=== PATIENT | male | born 1935 | race Caucasian/White ===

== ENCOUNTER 2016-07-17 12:32 | Observation (INO) | payer OTHER ==
[~2016-07-17] VITALS: Ht 157.5 cm; Wt 72.5 kg
[~2016-07-17 12:32] MED LIST: ASPIRIN81 M2 PO; CINNAMON500 MG PO; FOSINOPRIL SODI40 MG PO; KEFLEX500 MG PO; LORAZEPAM1 MG PO; MEN'S MULTI-VI1 EACH PO; METFORMIN HCL500 M1 PO; METOPROLOL SUCC50 MG PO; OMEGA 3-6-9 CO1 EACH PO; PAROXETINE HCL40 MG PO; SIMVASTATIN40 MG PO; TAMSULOSIN HCL0.4 MG PO
[2016-07-17] MEDS ORDERED: METFORMIN HCL750 MG PO (12:54)
[2016-07-17] MEDS ORDERED: COQ-10100 MG PO (12:55)
[2016-07-17] MEDS ORDERED: RANITIDINE HCL300 M1 PO (12:55)
[2016-07-17] MEDS ORDERED: BREO ELLIPTA I1 EACH IH (12:56)
[2016-07-17] MEDS ORDERED: FOSINOPRIL SODI20 MG PO (12:57)
[2016-07-17] MEDS ORDERED: PAROXETINE HCL40 MG PO (12:57)
[2016-07-17] MEDS ORDERED: GABAPENTIN300 MG PO (12:58)
[2016-07-17] MEDS ORDERED: CLONAZEPAM0.5 MG PO (12:59)
[2016-07-17 14:33] LABS: EOSINOPHIL (%) 2.6 % (0-5); EOSINOPHIL COUNT 0.1 K/uL (0-0.3); HEMATOCRIT 37.1 % (38.0-50.0); IMMATURE GRANULOCYTE (%) 0.2 % (0.0-0.7); INSTRUMENT ABS NEUTROPHIL CT 2.9 K/uL; LYMPHOCYTE COUNT 1.5 K/uL (1.0-2.8); MCH 28.8 PG (29.0-34.0); MCHC 32.3 G/DL (30.0-36.0); MCV 89.2 FL (86-99); MEAN PLAT.VOLUME 11.1 uM^3 (9.0-12.4); MONOCYTE (%) 10.5 % (3-12); MONOCYTE COUNT 0.5 K/uL (0-0.8); NEUTROPHIL (%) 56.9 % (45-76); NEUTROPHIL COUNT 2.9 K/uL (1.8-6.4); PLATELET COUNT 138 K/uL (156-360); RBC DIS.WIDTH-CV 14.7 % (11.8-14.6); RBC DIS.WIDTH-SD 47.8 % (39-53); RED BLOOD COUNT 4.16 M/uL (4.00-5.50); WHITE BLOOD COUNT 5.1 K/uL (4.1-10.2)
[2016-07-17 14:54] LABS: CHLORIDE 101 mEq/L (99-109); POTASSIUM 4.1 mEq/L (3.7-5.4); SODIUM 135 mEq/L (136-147)
[2016-07-17 14:56] LABS: GLUCOSE 106 mg/dL (70-99)
[2016-07-17 14:57] LABS: ANION GAP 9 MEQ/L (2-14); TROP-I INTERPRETATION NEGATIVE; TROPONIN-I < 0.01 ng/mL (0.0-0.30)
[2016-07-17 15:00] LABS: GFR ESTIMATE (CALCULATED) 52 mL/min/
[2016-07-17 15:01] LABS: UREA NITROGEN (BUN) 24 mg/dL (9-23)
[2016-07-17] MEDS ORDERED: GABAPENTIN600 MG PO (16:14)
[2016-07-17] MEDS ORDERED: IPRATROPIU0.2 MG/1 M IH ×2 (16:16)
[2016-07-17] MEDS ORDERED: RANITIDINE HCL300 MG PO (16:17)
[2016-07-17 19:06] VITALS: BP 114/71
[2016-07-17 19:37] VITALS: BP 114/71
[2016-07-17 21:02] LABS: POINT-OF-CARE METER ID UU13113781; POINT-OF-CARE USER ID ENVMNS
[2016-07-17 22:04] LABS: TROP-I INTERPRETATION NEGATIVE; TROPONIN-I < 0.01 ng/mL (0.0-0.30)
[2016-07-17 22:06] LABS: CREATINE KINASE 284 IU/L (1-294); TOTAL CK 284 IU/L (1-294)
[2016-07-17 22:37] LABS: CK-MB 6.2 ng/mL (0.0-4.9)
[2016-07-17 23:55] VITALS: BP 106/56
[2016-07-18 04:00] VITALS: BP 119/73
[2016-07-18 06:53] LABS: HEMATOCRIT 37.9 % (38.0-50.0); MCH 28.8 PG (29.0-34.0); MCHC 32.2 G/DL (30.0-36.0); MCV 89.4 FL (86-99); MEAN PLAT.VOLUME 11.8 uM^3 (9.0-12.4); PLATELET COUNT 142 K/uL (156-360); RBC DIS.WIDTH-CV 14.9 % (11.8-14.6); RBC DIS.WIDTH-SD 48.6 % (39-53); RED BLOOD COUNT 4.24 M/uL (4.00-5.50); WHITE BLOOD COUNT 4.8 K/uL (4.1-10.2)
[2016-07-18 07:22] LABS: TROP-I INTERPRETATION NEGATIVE; TROPONIN-I < 0.01 ng/mL (0.0-0.30)
[2016-07-18 07:49] LABS: POINT-OF-CARE METER ID UU14174216
[2016-07-18 08:11] LABS: CREATINE KINASE 340 IU/L (1-294); TOTAL CK 340 IU/L (1-294)
[2016-07-18 08:14] LABS: ALKALINE PHOSPHATASE 37 IU/L (3-129); ANION GAP 18 MEQ/L (2-14); CHLORIDE 95 MEQ/L (99-109); GFR ESTIMATE (CALCULATED) 41 mL/min/; POTASSIUM 3.7 MEQ/L (3.7-5.4); SAMPLE HEMOLYSIS CHECK 0; SAMPLE ICTERIC CHECK 0; SAMPLE LIPEMIA CHECK 0; SODIUM 134 MEQ/L (136-147); TOTAL BILIRUBIN 0.6 MG/DL (0.0-1.0); UREA NITROGEN (BUN) 33 mg/dL (9-23)
[2016-07-18 08:16] LABS: GLUCOSE 173 mg/dL (70-99)
[2016-07-18 08:20] VITALS: BP 139/60
[2016-07-18 08:37] LABS: CK-MB 8.5 ng/mL (0.0-4.9)
[2016-07-18 11:55] VITALS: BP 142/67
[2016-07-18 15:47] VITALS: BP 143/88
[2016-07-18 16:55] LABS: POINT-OF-CARE METER ID UU14174216
[2016-07-18 21:10] VITALS: BP 142/77
[2016-07-19 00:36] VITALS: BP 145/78
[2016-07-19 05:00] VITALS: BP 115/68
[2016-07-19 07:18] LABS: ALKALINE PHOSPHATASE 34 IU/L (3-129); ANION GAP 13 MEQ/L (2-14); CHLORIDE 95 MEQ/L (99-109); GFR ESTIMATE (CALCULATED) 39 mL/min/; GLUCOSE 146 mg/dL (70-99); SAMPLE HEMOLYSIS CHECK 0; SAMPLE ICTERIC CHECK 0; SAMPLE LIPEMIA CHECK 0; SODIUM 133 MEQ/L (136-147); TOTAL BILIRUBIN 0.5 MG/DL (0.0-1.0); UREA NITROGEN (BUN) 44 mg/dL (9-23)
[2016-07-19 07:19] LABS: POTASSIUM 4.6 MEQ/L (3.7-5.4)
[2016-07-19 07:25] LABS: HEMATOCRIT 37.5 % (38.0-50.0); MCH 28.2 PG (29.0-34.0); MCHC 32.5 G/DL (30.0-36.0); MCV 86.6 FL (86-99); MEAN PLAT.VOLUME 11.7 uM^3 (9.0-12.4); PLATELET COUNT 148 K/uL (156-360); RBC DIS.WIDTH-CV 14.9 % (11.8-14.6); RBC DIS.WIDTH-SD 47.8 % (39-53); RED BLOOD COUNT 4.33 M/uL (4.00-5.50)
[2016-07-19 07:26] LABS: WHITE BLOOD COUNT 12.5 K/uL (4.1-10.2)
[2016-07-19 07:47] VITALS: BP 122/76
[2016-07-19 08:02] LABS: POINT-OF-CARE METER ID UU14174216
[2016-07-19 11:20] VITALS: BP 139/69
[2016-07-19 16:17] VITALS: BP 139/84
[2016-07-19 16:20] LABS: POINT-OF-CARE METER ID UU14174216
[2016-07-19] MEDS ORDERED: PREDNISONE20 MG PO (17:31)
[2016-07-19] MEDS ORDERED: LASIX40 MG PO (17:31)
[2016-07-19] MEDS ORDERED: PANTOPRAZOLE SO40 MG PO (17:31)
[2016-07-19] MEDS ORDERED: KLOR-CON M1010 MEQ PO (17:31)
== END 2016-07-19 19:43 | disposition home health service (06) ==
LOC: EME 12:32 → 4EAST 16:22 → EDOF 16:22 → 4EAST 17:28
PROVIDERS: Emergency Medicine; Family Medicine; Internal Medicine
DX: J44.0 Chronic obstructive pulmonary disease with (acute) lower respiratory infection (principal); J20.9 Acute bronchitis, unspecified; J44.1 Chronic obstructive pulmonary disease with (acute) exacerbation; I50.9 Heart failure, unspecified; E11.43 Type 2 diabetes mellitus with diabetic autonomic (poly)neuropathy; I25.10 Atherosclerotic heart disease of native coronary artery without angina pectoris; I25.2 Old myocardial infarction; Z95.1 Presence of aortocoronary bypass graft; M19.90 Unspecified osteoarthritis, unspecified site; K21.9 Gastro-esophageal reflux disease without esophagitis; E03.9 Hypothyroidism, unspecified; G25.0 Essential tremor
CPT/HCPCS: 71010; 71020; 80048; 80053; 82550; 82550 91; 82553; 82948; 83605; 83880; 84484; 85025; 85027; 87040; 87070; 87205; 93005; 93306; 94640; 94640 76; 94760; 99202; 99281; 99285; G0378; G8987 GO CI; G8988 GO CH; J0692; J1644; J1815; J1940; J2920; J2930; J7030; J7050; J7512

== ENCOUNTER 2016-07-28 13:01 | Inpatient (IN) | payer OTHER ==
[~2016-07-28] VITALS: Ht 154.9 cm; Wt 67.7 kg
[~2016-07-28 13:01] MED LIST changes: +BREO ELLIPTA I1 EACH IH; +CLONAZEPAM0.5 MG PO; +COQ-10100 MG PO; +FOSINOPRIL SODI20 MG PO; +GABAPENTIN300 MG PO; +GABAPENTIN600 MG PO; +IPRATROPIU0.2 MG/1 M IH; +KLOR-CON M1010 MEQ PO; +LASIX40 MG PO; +METFORMIN HCL750 MG PO; +PANTOPRAZOLE SO40 MG PO; +PREDNISONE20 MG PO; +RANITIDINE HCL300 M1 PO; +RANITIDINE HCL300 MG PO
[2016-07-28 14:07] LABS: EOSINOPHIL (%) 0.1 % (0-5); HEMATOCRIT 41.7 % (38.0-50.0); IMMATURE GRANULOCYTE (%) 0.3 % (0.0-0.7); IMMATURE GRANULOCYTE COUNT 0.1 K/uL; INSTRUMENT ABS NEUTROPHIL CT 13.9 K/uL; LYMPHOCYTE COUNT 0.6 K/uL (1.0-2.8); MCH 28.6 PG (29.0-34.0); MCHC 33.6 G/DL (30.0-36.0); MCV 85.3 FL (86-99); MONOCYTE COUNT 0.8 K/uL (0-0.8); NEUTROPHIL (%) 90.4 % (45-76); NEUTROPHIL COUNT 13.9 K/uL (1.8-6.4); PLATELET COUNT 193 K/uL (156-360); RBC DIS.WIDTH-CV 14.4 % (11.8-14.6); RBC DIS.WIDTH-SD 44.6 % (39-53); RED BLOOD COUNT 4.89 M/uL (4.00-5.50); WHITE BLOOD COUNT 15.4 K/uL (4.1-10.2)
[2016-07-28 14:13] LABS: CHLORIDE 89 mEq/L (99-109); POTASSIUM 5.4 mEq/L (3.7-5.4); SODIUM 127 mEq/L (136-147)
[2016-07-28 14:15] LABS: GLUCOSE 313 mg/dL (70-99)
[2016-07-28 14:16] LABS: ANION GAP 14 MEQ/L (2-14)
[2016-07-28 14:17] LABS: TOTAL BILIRUBIN 0.7 mg/dL (0.0-1.0)
[2016-07-28 14:18] LABS: ALKALINE PHOSPHATASE 43 IU/L (3-129)
[2016-07-28 14:19] LABS: GFR ESTIMATE (CALCULATED) 25 mL/min/
[2016-07-28 14:20] LABS: UREA NITROGEN (BUN) 91 mg/dL (9-23)
[2016-07-28 14:25] LABS: TROP-I INTERPRETATION NEGATIVE; TROPONIN-I < 0.01 ng/mL (0.0-0.30)
[2016-07-28] MEDS ORDERED: DELTASONE20 M1 PO (16:32)
[2016-07-28] MEDS ORDERED: FUROSEMIDE40 MG PO (16:32)
[2016-07-28] MEDS ORDERED: PROTONIX40 MG PO (16:32)
[2016-07-28] MEDS ORDERED: CARBIDOPA/LEVO1 EACH PO (16:33)
[2016-07-28] MEDS ORDERED: ROBITUSSIN DM118 ML PO (16:33)
[2016-07-28] MEDS ORDERED: IPRATROPIU0.2 MG/1 M IH (16:34)
[2016-07-28] MEDS ORDERED: PROVENTIL,2.5 MG/3 M IH (16:34)
[2016-07-28 16:37] LABS: ADD MIUA? YES; BILIRUBIN NEGATIVE; BLOOD SMALL; COLOR YELLOW ((YELLOW)); GLUCOSE (STRIP) NEGATIVE; KETONES NEGATIVE; LEUKOCYTES NEGATIVE; NITRITE NEGATIVE; PROTEIN (STRIP) NEGATIVE; SPECIFIC GRAVITY 1.011 (1.000-1.030); UROBILINOGEN 0.2 MG/DL (0.2-1.0)
[2016-07-28 16:48] LABS: BACTERIA NONE SEEN /HPF; EPITHELIAL CELLS NONE SEEN /HPF; HYALINE CASTS 0-5 /LPF; MUCUS NONE SEEN /LPF; WHITE BLOOD CELLS 0-5 /HPF (0-5)
[2016-07-28 21:11] VITALS: BP 120/64
[2016-07-29] VITALS (7 sets, daily range): BP systolic 112–144; BP diastolic 60–84
[2016-07-29 08:09] LABS: ANION GAP 13 MEQ/L (2-14); CHLORIDE 100 MEQ/L (99-109); GFR ESTIMATE (CALCULATED) 44 mL/min/; GLUCOSE 299 mg/dL (70-99); POTASSIUM 4.6 MEQ/L (3.7-5.4); SAMPLE HEMOLYSIS CHECK 0; SAMPLE ICTERIC CHECK 0; SAMPLE LIPEMIA CHECK 0; SODIUM 136 MEQ/L (136-147); UREA NITROGEN (BUN) 58 mg/dL (9-23)
[2016-07-30 04:27] VITALS: BP 120/64
[2016-07-30 06:11] LABS: HEMATOCRIT 33.3 % (38.0-50.0); MCH 28.7 PG (29.0-34.0); MCV 86.9 FL (86-99); RBC DIS.WIDTH-CV 14.5 % (11.8-14.6); RBC DIS.WIDTH-SD 45.9 % (39-53)
[2016-07-30 06:20] LABS: RED BLOOD COUNT 3.83 M/uL (4.00-5.50); WHITE BLOOD COUNT 8.8 K/uL (4.1-10.2)
[2016-07-30 06:21] LABS: ALKALINE PHOSPHATASE 32 IU/L (3-129); ANION GAP 7 MEQ/L (2-14); CHLORIDE 102 MEQ/L (99-109); GFR ESTIMATE (CALCULATED) > 59 mL/min/; GLUCOSE 261 mg/dL (70-99); POTASSIUM 4.1 MEQ/L (3.7-5.4); SAMPLE HEMOLYSIS CHECK 0; SAMPLE ICTERIC CHECK 0; SAMPLE LIPEMIA CHECK 0; SODIUM 136 MEQ/L (136-147); TOTAL BILIRUBIN 0.4 MG/DL (0.0-1.0); UREA NITROGEN (BUN) 39 mg/dL (9-23)
[2016-07-30 07:05] LABS: MEAN PLAT.VOLUME 11.5 uM^3 (9.0-12.4); PLAT.SUFFICIENCY DECREASED
[2016-07-30 07:05] LABS: POINT-OF-CARE METER ID UU14188577
[2016-07-30 07:15] LABS: PLATELET COUNT 127 K/uL (156-360)
[2016-07-30 07:54] VITALS: BP 124/68
[2016-07-30 11:12] VITALS: BP 118/78
[2016-07-30 11:28] LABS: POINT-OF-CARE METER ID UU14149397
[2016-07-30 16:38] VITALS: BP 117/59
[2016-07-30 19:39] VITALS: BP 133/64
[2016-07-30 23:35] VITALS: BP 129/66
[2016-07-31 04:28] VITALS: BP 140/77
[2016-07-31 05:02] LABS: HEMATOCRIT 32.6 % (38.0-50.0); MCHC 32.5 G/DL (30.0-36.0); MCV 86.2 FL (86-99); MEAN PLAT.VOLUME 11.8 uM^3 (9.0-12.4); PLATELET COUNT 141 K/uL (156-360); RBC DIS.WIDTH-CV 14.7 % (11.8-14.6); RBC DIS.WIDTH-SD 46.5 % (39-53); RED BLOOD COUNT 3.78 M/uL (4.00-5.50); WHITE BLOOD COUNT 9.7 K/uL (4.1-10.2)
[2016-07-31 05:23] LABS: POTASSIUM 4.3 mEq/L (3.7-5.4); SODIUM 140 mEq/L (136-147)
[2016-07-31 05:24] LABS: GLUCOSE 278 mg/dL (70-99)
[2016-07-31 05:26] LABS: ANION GAP 8 MEQ/L (2-14)
[2016-07-31 05:28] LABS: CHLORIDE 108 mEq/L (99-109); GFR ESTIMATE (CALCULATED) > 59 mL/min/
[2016-07-31 05:34] LABS: UREA NITROGEN (BUN) 36 mg/dL (9-23)
[2016-07-31 07:49] VITALS: BP 142/77
[2016-07-31 11:55] VITALS: BP 158/77
[2016-07-31 12:27] LABS: POINT-OF-CARE METER ID UU14149397
[2016-07-31 15:50] VITALS: BP 164/90
[2016-07-31 17:18] LABS: POINT-OF-CARE METER ID UU14149397
[2016-07-31 19:44] VITALS: BP 170/98
[2016-08-01] VITALS (7 sets, daily range): BP systolic 134–164; BP diastolic 74–89
[2016-08-02 03:54] VITALS: BP 132/88
[2016-08-02 05:53] LABS: GFR ESTIMATE (CALCULATED) > 59 mL/min/
[2016-08-02 06:30] LABS: POINT-OF-CARE METER ID UU14188577
[2016-08-02 08:35] VITALS: BP 131/78
[2016-08-02] MEDS ORDERED: LEVAQUIN500 MG PO (09:44)
[2016-08-02] MEDS ORDERED: PREDNISONE20 MG PO (09:44)
[2016-08-03] MEDS ORDERED: LEVAQUIN500 MG PO (15:04)
[2016-08-03] MEDS ORDERED: FOSINOPRIL SODI40 MG PO (15:08)
[2016-08-03] MEDS ORDERED: DELTASONE20 M1 PO (15:10)
[2016-08-03] MEDS ORDERED: LOW DOSE ASPIRI81 M1 PO (15:12)
[2016-08-21] MEDS ORDERED: COQ-10100 MG PO (17:40)
[2016-08-21] MEDS ORDERED: XOPENEX1.25 MG/3 IH (17:43)
== END 2016-08-02 13:45 | disposition home health service (06) | DRG 190 ==
LOC: EME 13:01 → 3EAST 17:46 → EDOF 17:46 → 3EAST 19:53
PROVIDERS: Emergency Medicine; Internal Medicine
DX: J44.1 Chronic obstructive pulmonary disease with (acute) exacerbation (principal); J44.0 Chronic obstructive pulmonary disease with (acute) lower respiratory infection; J18.9 Pneumonia, unspecified organism; R78.81 Bacteremia; E87.1 Hypo-osmolality and hyponatremia; N17.9 Acute kidney failure, unspecified; E86.0 Dehydration; T50.2X5A Adverse effect of carbonic-anhydrase inhibitors, benzothiadiazides and other diuretics, initial encounter; I25.10 Atherosclerotic heart disease of native coronary artery without angina pectoris; I11.0 Hypertensive heart disease with heart failure; I50.9 Heart failure, unspecified; E11.9 Type 2 diabetes mellitus without complications; K21.9 Gastro-esophageal reflux disease without esophagitis; F41.9 Anxiety disorder, unspecified; E66.9 Obesity, unspecified; Z95.1 Presence of aortocoronary bypass graft; Z79.82 Long term (current) use of aspirin; Z87.891 Personal history of nicotine dependence
CPT/HCPCS: 71010; 71020; 71250; 80048; 80053; 81003; 82565; 82948; 83605; 83735; 83880; 84484; 85025; 85027; 87040; 87070; 87077; 87106; 87147; 87186; 87205; 87801; 93005; 94640; 94640 76; 94799; 99202; 99281; 99285; J0456; J0690; J0692; J1650; J1815; J2920; J2930; J3370; J7030; J7050; J7512

== ENCOUNTER 2016-08-03 12:32 | Inpatient (IN) | payer OTHER ==
[~2016-08-03] VITALS: Ht 154.9 cm; Wt 70.1 kg
[~2016-08-03 12:32] MED LIST changes: +CARBIDOPA/LEVO1 EACH PO; +DELTASONE20 M1 PO; +FUROSEMIDE40 MG PO; +LEVAQUIN500 MG PO; +PROTONIX40 MG PO; +PROVENTIL,2.5 MG/3 M IH; +ROBITUSSIN DM118 ML PO
[2016-08-03 14:17] LABS: EOSINOPHIL (%) 0.3 % (0-5); HEMATOCRIT 32.8 % (38.0-50.0); IMMATURE GRANULOCYTE (%) 0.5 % (0.0-0.7); IMMATURE GRANULOCYTE COUNT 0.1 K/uL; INSTRUMENT ABS NEUTROPHIL CT 9.1 K/uL; LYMPHOCYTE COUNT 0.5 K/uL (1.0-2.8); MCH 28.7 PG (29.0-34.0); MCHC 32.9 G/DL (30.0-36.0); MCV 87.2 FL (86-99); MEAN PLAT.VOLUME 11.1 uM^3 (9.0-12.4); MONOCYTE (%) 1.4 % (3-12); MONOCYTE COUNT 0.1 K/uL (0-0.8); NEUTROPHIL (%) 92.9 % (45-76); NEUTROPHIL COUNT 9.1 K/uL (1.8-6.4); PLATELET COUNT 108 K/uL (156-360); RBC DIS.WIDTH-CV 14.9 % (11.8-14.6); RBC DIS.WIDTH-SD 47.8 % (39-53); RED BLOOD COUNT 3.76 M/uL (4.00-5.50); WHITE BLOOD COUNT 9.8 K/uL (4.1-10.2)
[2016-08-03 14:26] LABS: INTER. NORMALIZED RATIO 1.1; PROTHROMBIN TIME 11.7 (9.2-11.2)
[2016-08-03 14:28] LABS: CHLORIDE 102 mEq/L (99-109); POTASSIUM 4.4 mEq/L (3.7-5.4); SODIUM 133 mEq/L (136-147)
[2016-08-03 14:30] LABS: GLUCOSE 258 mg/dL (70-99)
[2016-08-03 14:31] LABS: ANION GAP 10 MEQ/L (2-14)
[2016-08-03 14:34] LABS: GFR ESTIMATE (CALCULATED) 41 mL/min/; UREA NITROGEN (BUN) 32 mg/dL (9-23)
[2016-08-03 14:38] LABS: TROP-I INTERPRETATION POSITIVE; TROPONIN-I 2.57 ng/mL (0.0-0.30)
[2016-08-03] MEDS ORDERED: LEVAQUIN500 MG PO (15:04)
[2016-08-03] MEDS ORDERED: FOSINOPRIL SODI40 MG PO (15:08)
[2016-08-03] MEDS ORDERED: DELTASONE20 M1 PO (15:10)
[2016-08-03] MEDS ORDERED: LOW DOSE ASPIRI81 M1 PO (15:12)
[2016-08-03 21:42] LABS: TROP-I INTERPRETATION POSITIVE; TROPONIN-I 4.35 ng/mL (0.0-0.30)
[2016-08-03 22:50] VITALS: BP 113/67
[2016-08-03 22:53] VITALS: BP 113/67
[2016-08-03 23:00] VITALS: BP 96/65
[2016-08-03 23:45] LABS: INTER. NORMALIZED RATIO 1.3
[2016-08-03 23:48] LABS: PTT 106.4 (25-32)
[2016-08-04] VITALS (18 sets, daily range): BP systolic 83–133; BP diastolic 54–80
[2016-08-04 00:05] LABS: METH RESISTANT S AUREUS PCR NEGATIVE (NEGATIVE)
[2016-08-04 00:06] LABS: PROBE CHECK PASS; SPECIMEN PROCESSING CONTROL PASS
[2016-08-04 00:59] LABS: TROP-I INTERPRETATION POSITIVE; TROPONIN-I 3.69 ng/mL (0.0-0.30)
[2016-08-04 06:57] LABS: EOSINOPHIL (%) 0.6 % (0-5); EOSINOPHIL COUNT 0.1 K/uL (0-0.3); HEMATOCRIT 28.7 % (38.0-50.0); IMMATURE GRANULOCYTE (%) 0.7 % (0.0-0.7); IMMATURE GRANULOCYTE COUNT 0.1 K/uL; INSTRUMENT ABS NEUTROPHIL CT 11.1 K/uL; MCH 28.3 PG (29.0-34.0); MCHC 32.4 G/DL (30.0-36.0); MCV 87.2 FL (86-99); MEAN PLAT.VOLUME 11.7 uM^3 (9.0-12.4); MONOCYTE (%) 3.4 % (3-12); MONOCYTE COUNT 0.4 K/uL (0-0.8); NEUTROPHIL (%) 87.1 % (45-76); NEUTROPHIL COUNT 11.1 K/uL (1.8-6.4); PLATELET COUNT 101 K/uL (156-360); RBC DIS.WIDTH-SD 48.2 % (39-53); RED BLOOD COUNT 3.29 M/uL (4.00-5.50)
[2016-08-04 07:09] LABS: TROP-I INTERPRETATION POSITIVE; TROPONIN-I 3.13 ng/mL (0.0-0.30)
[2016-08-04 07:17] LABS: WHITE BLOOD COUNT 12.8 K/uL (4.1-10.2)
[2016-08-04 07:59] LABS: ALKALINE PHOSPHATASE 34 IU/L (3-129); ANION GAP 11 MEQ/L (2-14); CHLORIDE 101 MEQ/L (99-109); GFR ESTIMATE (CALCULATED) 52 mL/min/; GLUCOSE 180 mg/dL (70-99); POTASSIUM 4.2 MEQ/L (3.7-5.4); SAMPLE HEMOLYSIS CHECK 0; SAMPLE ICTERIC CHECK 0; SAMPLE LIPEMIA CHECK 0; SODIUM 134 MEQ/L (136-147); UREA NITROGEN (BUN) 32 mg/dL (9-23)
[2016-08-04 08:00] LABS: TOTAL BILIRUBIN 0.9 MG/DL (0.0-1.0)
[2016-08-04 16:39] LABS: TROP-I INTERPRETATION POSITIVE; TROPONIN-I 1.85 ng/mL (0.0-0.30)
[2016-08-05] VITALS (9 sets, daily range): BP systolic 72–124; BP diastolic 40–58
[2016-08-05 05:52] LABS: EOSINOPHIL (%) 0.1 % (0-5); HEMATOCRIT 28.8 % (38.0-50.0); IMMATURE GRANULOCYTE (%) 0.4 % (0.0-0.7); INSTRUMENT ABS NEUTROPHIL CT 8.4 K/uL; LYMPHOCYTE COUNT 0.6 K/uL (1.0-2.8); MCH 28.7 PG (29.0-34.0); MCHC 33.3 G/DL (30.0-36.0); MEAN PLAT.VOLUME 11.1 uM^3 (9.0-12.4); MONOCYTE (%) 2.1 % (3-12); MONOCYTE COUNT 0.2 K/uL (0-0.8); NEUTROPHIL (%) 90.5 % (45-76); NEUTROPHIL COUNT 8.4 K/uL (1.8-6.4); PLATELET COUNT 120 K/uL (156-360); RBC DIS.WIDTH-CV 14.7 % (11.8-14.6); RBC DIS.WIDTH-SD 45.3 % (39-53); RED BLOOD COUNT 3.35 M/uL (4.00-5.50); WHITE BLOOD COUNT 9.3 K/uL (4.1-10.2)
[2016-08-05 07:23] LABS: ALKALINE PHOSPHATASE 33 IU/L (3-129); ANION GAP 10 MEQ/L (2-14); CHLORIDE 98 MEQ/L (99-109); GFR ESTIMATE (CALCULATED) 52 mL/min/; GLUCOSE 229 mg/dL (70-99); POTASSIUM 4.3 MEQ/L (3.7-5.4); SAMPLE HEMOLYSIS CHECK 0; SAMPLE ICTERIC CHECK 0; SAMPLE LIPEMIA CHECK 0; SODIUM 133 MEQ/L (136-147); UREA NITROGEN (BUN) 32 mg/dL (9-23)
[2016-08-05 07:43] LABS: TOTAL BILIRUBIN 1.1 MG/DL (0.0-1.0)
[2016-08-05 08:56] LABS: DIGOXIN 0.7 ng/mL (0.8-2.0)
[2016-08-06] VITALS (7 sets, daily range): BP systolic 99–154; BP diastolic 57–75
[2016-08-06 05:20] LABS: EOSINOPHIL (%) 0.1 % (0-5); HEMATOCRIT 29.2 % (38.0-50.0); IMMATURE GRANULOCYTE (%) 0.4 % (0.0-0.7); INSTRUMENT ABS NEUTROPHIL CT 8.8 K/uL; LYMPHOCYTE COUNT 0.4 K/uL (1.0-2.8); MCH 28.6 PG (29.0-34.0); MCHC 32.9 G/DL (30.0-36.0); MCV 86.9 FL (86-99); MEAN PLAT.VOLUME 11.3 uM^3 (9.0-12.4); MONOCYTE (%) 2.2 % (3-12); MONOCYTE COUNT 0.2 K/uL (0-0.8); NEUTROPHIL COUNT 8.8 K/uL (1.8-6.4); PLATELET COUNT 127 K/uL (156-360); RBC DIS.WIDTH-CV 14.6 % (11.8-14.6); RBC DIS.WIDTH-SD 46.1 % (39-53); RED BLOOD COUNT 3.36 M/uL (4.00-5.50); WHITE BLOOD COUNT 9.4 K/uL (4.1-10.2)
[2016-08-06 05:51] LABS: ALKALINE PHOSPHATASE 32 IU/L (3-129); ANION GAP 6 MEQ/L (2-14); CHLORIDE 98 MEQ/L (99-109); GFR ESTIMATE (CALCULATED) 52 mL/min/; GLUCOSE 249 mg/dL (70-99); POTASSIUM 4.7 MEQ/L (3.7-5.4); SAMPLE HEMOLYSIS CHECK 0; SAMPLE ICTERIC CHECK 0; SAMPLE LIPEMIA CHECK 0; SODIUM 132 MEQ/L (136-147); TOTAL BILIRUBIN 1.1 MG/DL (0.0-1.0); UREA NITROGEN (BUN) 39 mg/dL (9-23)
[2016-08-06 07:33] LABS: POINT-OF-CARE METER ID UU13113781
[2016-08-06 15:36] LABS: POINT-OF-CARE METER ID UU13113781
[2016-08-06 20:32] LABS: POINT-OF-CARE METER ID UU14174216
[2016-08-07 03:19] VITALS: BP 130/71
[2016-08-07 06:03] LABS: EOSINOPHIL (%) 0.2 % (0-5); HEMATOCRIT 28.4 % (38.0-50.0); IMMATURE GRANULOCYTE (%) 0.4 % (0.0-0.7); INSTRUMENT ABS NEUTROPHIL CT 8.3 K/uL; LYMPHOCYTE COUNT 0.5 K/uL (1.0-2.8); MCHC 33.1 G/DL (30.0-36.0); MCV 87.7 FL (86-99); MEAN PLAT.VOLUME 11.2 uM^3 (9.0-12.4); MONOCYTE COUNT 0.3 K/uL (0-0.8); NEUTROPHIL (%) 90.8 % (45-76); NEUTROPHIL COUNT 8.3 K/uL (1.8-6.4); PLATELET COUNT 112 K/uL (156-360); RBC DIS.WIDTH-CV 14.9 % (11.8-14.6); RED BLOOD COUNT 3.24 M/uL (4.00-5.50); WHITE BLOOD COUNT 9.1 K/uL (4.1-10.2)
[2016-08-07 06:30] LABS: ALKALINE PHOSPHATASE 34 IU/L (3-129); ANION GAP 5 MEQ/L (2-14); CHLORIDE 98 MEQ/L (99-109); GFR ESTIMATE (CALCULATED) > 59 mL/min/; GLUCOSE 218 mg/dL (70-99); MAGNESIUM 1.5 mg/dl (1.3-2.7); SAMPLE HEMOLYSIS CHECK 0; SAMPLE ICTERIC CHECK 0; SAMPLE LIPEMIA CHECK 0; SODIUM 130 MEQ/L (136-147); TOTAL BILIRUBIN 1.2 MG/DL (0.0-1.0); UREA NITROGEN (BUN) 31 mg/dL (9-23)
[2016-08-07 08:13] VITALS: BP 134/70
[2016-08-07 11:30] VITALS: BP 105/71
[2016-08-07 15:40] VITALS: BP 136/71
[2016-08-07] MEDS ORDERED: CEFDINIR300 MG PO (15:49)
[2016-08-07] MEDS ORDERED: MYCOSTATIN 100,60 ML PO (15:49)
[2016-08-07] MEDS ORDERED: XARELTO15 MG PO (15:49)
[2016-08-07] MEDS ORDERED: XOPENEX1.25 MG/0. AEROSOL (15:49)
[2016-08-13 08:03] LABS: POINT-OF-CARE METER ID UU13113781
[2016-08-16 11:47] LABS: POINT-OF-CARE USER ID NUTSLF44
== END 2016-08-07 17:00 | disposition home health service (06) | DRG 280 ==
LOC: EME → EDBD 12:32 → EDOF 20:46 → 4WEST 20:46 → 4EAST 08-05 17:20
PROVIDERS: Emergency Medicine; Internal Medicine
DX: I48.91 Unspecified atrial fibrillation (principal); J18.9 Pneumonia, unspecified organism; I21.4 Non-ST elevation (NSTEMI) myocardial infarction; I13.0 Hypertensive heart and chronic kidney disease with heart failure and stage 1 through stage 4 chronic kidney disease, or unspecified chronic kidney disease; N18.9 Chronic kidney disease, unspecified; I25.10 Atherosclerotic heart disease of native coronary artery without angina pectoris; J44.9 Chronic obstructive pulmonary disease, unspecified; I50.9 Heart failure, unspecified; G20 Parkinson's disease; E11.22 Type 2 diabetes mellitus with diabetic chronic kidney disease; E78.5 Hyperlipidemia, unspecified; I08.0 Rheumatic disorders of both mitral and aortic valves; I70.8 Atherosclerosis of other arteries; K21.9 Gastro-esophageal reflux disease without esophagitis; F41.9 Anxiety disorder, unspecified; Z87.891 Personal history of nicotine dependence; Z95.1 Presence of aortocoronary bypass graft; I25.2 Old myocardial infarction
CPT/HCPCS: 71010; 71020; 80048; 80053; 80162; 82948; 83605; 83735; 84484; 85025; 85610; 85730; 87040; 87641; 93005; 94640; 94640 76; 94760; 94799; 99202; 99281; 99285; C1769; C1887; C1894; J0692; J1160; J1644; J1815; J1956; J2250; J3010; J7030; J7040; J7050; J7512

== ENCOUNTER 2016-08-09 10:23 | Inpatient (IN) | payer OTHER ==
[~2016-08-09] VITALS: Ht 152.4 cm; Wt 67.8 kg
[~2016-08-09 10:23] MED LIST changes: +CEFDINIR300 MG PO; +LOW DOSE ASPIRI81 M1 PO; +MYCOSTATIN 100,60 ML PO; +XARELTO15 MG PO; +XOPENEX1.25 MG/0. AEROSOL
[2016-08-09 10:59] LABS: EOSINOPHIL (%) 0.7 % (0-5); EOSINOPHIL COUNT 0.1 K/uL (0-0.3); HEMATOCRIT 33.7 % (38.0-50.0); IMMATURE GRANULOCYTE (%) 0.4 % (0.0-0.7); INSTRUMENT ABS NEUTROPHIL CT 6.5 K/uL; LYMPHOCYTE COUNT 1.5 K/uL (1.0-2.8); MCHC 33.2 G/DL (30.0-36.0); MCV 87.3 FL (86-99); MEAN PLAT.VOLUME 11.1 uM^3 (9.0-12.4); MONOCYTE (%) 5.9 % (3-12); MONOCYTE COUNT 0.5 K/uL (0-0.8); NEUTROPHIL COUNT 6.5 K/uL (1.8-6.4); PLATELET COUNT 148 K/uL (156-360); RBC DIS.WIDTH-CV 15.9 % (11.8-14.6); RBC DIS.WIDTH-SD 47.8 % (39-53); RED BLOOD COUNT 3.86 M/uL (4.00-5.50); WHITE BLOOD COUNT 8.5 K/uL (4.1-10.2)
[2016-08-09 11:06] LABS: CHLORIDE 94 mEq/L (99-109); POTASSIUM 4.5 mEq/L (3.7-5.4); SODIUM 128 mEq/L (136-147)
[2016-08-09 11:08] LABS: GLUCOSE 234 mg/dL (70-99)
[2016-08-09 11:10] LABS: ANION GAP 10 MEQ/L (2-14); TOTAL BILIRUBIN 1.3 mg/dL (0.0-1.0)
[2016-08-09 11:12] LABS: ALKALINE PHOSPHATASE 39 IU/L (3-129); GFR ESTIMATE (CALCULATED) 44 mL/min/
[2016-08-09 11:13] LABS: UREA NITROGEN (BUN) 40 mg/dL (9-23)
[2016-08-09 11:49] LABS: ADD MIUA? YES; BILIRUBIN NEGATIVE; BLOOD SMALL; COLOR YELLOW ((YELLOW)); GLUCOSE (STRIP) 150; KETONES 5; LEUKOCYTES NEGATIVE; NITRITE NEGATIVE; PROTEIN (STRIP) NEGATIVE; SPECIFIC GRAVITY 1.012 (1.000-1.030); UROBILINOGEN 0.2 MG/DL (0.2-1.0)
[2016-08-09 12:34] LABS: BACTERIA NONE SEEN /HPF; EPITHELIAL CELLS RARE /HPF; MUCUS TRACE /LPF; UCUL ADDED? NO; WHITE BLOOD CELLS 0-5 /HPF (0-5)
[2016-08-09] MEDS ORDERED: XARELTO15 MG PO (13:23)
[2016-08-09 13:37] LABS: DIGOXIN 0.5 ng/mL (0.8-2.0)
[2016-08-09 15:50] VITALS: BP 134/64
[2016-08-09 16:31] LABS: TROP-I INTERPRETATION INDETERMINATE; TROPONIN-I 0.56 ng/mL (0.0-0.30)
[2016-08-09 19:37] VITALS: BP 119/56
[2016-08-10 04:55] VITALS: BP 110/60
[2016-08-10 07:10] VITALS: BP 117/64
[2016-08-10 07:58] LABS: HEMATOCRIT 31.5 % (38.0-50.0); MCH 28.5 PG (29.0-34.0); MCHC 32.4 G/DL (30.0-36.0); MEAN PLAT.VOLUME 10.9 uM^3 (9.0-12.4); PLATELET COUNT 122 K/uL (156-360); RBC DIS.WIDTH-CV 15.9 % (11.8-14.6); RED BLOOD COUNT 3.58 M/uL (4.00-5.50); WHITE BLOOD COUNT 6.7 K/uL (4.1-10.2)
[2016-08-10 08:12] LABS: POINT-OF-CARE USER ID ENVKC36
[2016-08-10 08:19] LABS: ALKALINE PHOSPHATASE 35 IU/L (3-129); ANION GAP 5 MEQ/L (2-14); CHLORIDE 101 MEQ/L (99-109); GFR ESTIMATE (CALCULATED) > 59 mL/min/; POTASSIUM 4.3 MEQ/L (3.7-5.4); SAMPLE HEMOLYSIS CHECK 0; SAMPLE ICTERIC CHECK 0; SAMPLE LIPEMIA CHECK 0; SODIUM 133 MEQ/L (136-147); TOTAL BILIRUBIN 1.3 MG/DL (0.0-1.0); UREA NITROGEN (BUN) 25 mg/dL (9-23)
[2016-08-10 08:20] LABS: GLUCOSE 119 mg/dL (70-99)
[2016-08-10 12:22] VITALS: BP 123/60
[2016-08-10 12:31] LABS: POINT-OF-CARE USER ID ENVKC36
[2016-08-10 15:47] VITALS: BP 128/63
[2016-08-10 19:46] VITALS: BP 133/72
[2016-08-11 00:50] VITALS: BP 131/63
[2016-08-11 07:35] VITALS: BP 122/71
[2016-08-11 12:27] LABS: EOSINOPHIL (%) 0.5 % (0-5); HEMATOCRIT 31.5 % (38.0-50.0); IMMATURE GRANULOCYTE (%) 0.7 % (0.0-0.7); LYMPHOCYTE COUNT 0.6 K/uL (1.0-2.8); MCH 29.4 PG (29.0-34.0); MEAN PLAT.VOLUME 10.8 uM^3 (9.0-12.4); MONOCYTE (%) 4.1 % (3-12); MONOCYTE COUNT 0.2 K/uL (0-0.8); NEUTROPHIL (%) 84.8 % (45-76); PLATELET COUNT 107 K/uL (156-360); RBC DIS.WIDTH-SD 50.9 % (39-53); RED BLOOD COUNT 3.54 M/uL (4.00-5.50); WHITE BLOOD COUNT 5.9 K/uL (4.1-10.2)
[2016-08-11 13:14] VITALS: BP 128/73
[2016-08-11 13:28] LABS: ANION GAP 9 MEQ/L (2-14); CHLORIDE 102 MEQ/L (99-109); GFR ESTIMATE (CALCULATED) > 59 mL/min/; POTASSIUM 4.3 MEQ/L (3.7-5.4); SAMPLE HEMOLYSIS CHECK 0; SAMPLE ICTERIC CHECK 0; SAMPLE LIPEMIA CHECK 0; SODIUM 133 MEQ/L (136-147); UREA NITROGEN (BUN) 23 mg/dL (9-23)
[2016-08-11 13:30] LABS: GLUCOSE 300 mg/dL (70-99)
[2016-08-11 17:27] VITALS: BP 136/84
[2016-08-11 19:07] VITALS: BP 129/71
[2016-08-11 23:12] VITALS: BP 109/63
[2016-08-12 03:30] VITALS: BP 138/72
[2016-08-12 07:15] LABS: EOSINOPHIL (%) 0.2 % (0-5); HEMATOCRIT 28.6 % (38.0-50.0); IMMATURE GRANULOCYTE (%) 0.8 % (0.0-0.7); INSTRUMENT ABS NEUTROPHIL CT 4.4 K/uL; LYMPHOCYTE COUNT 0.4 K/uL (1.0-2.8); MCH 29.2 PG (29.0-34.0); MCHC 32.9 G/DL (30.0-36.0); MCV 88.8 FL (86-99); MEAN PLAT.VOLUME 10.5 uM^3 (9.0-12.4); MONOCYTE (%) 2.8 % (3-12); MONOCYTE COUNT 0.1 K/uL (0-0.8); NEUTROPHIL (%) 87.4 % (45-76); NEUTROPHIL COUNT 4.4 K/uL (1.8-6.4); PLATELET COUNT 97 K/uL (156-360); RED BLOOD COUNT 3.22 M/uL (4.00-5.50)
[2016-08-12 07:37] LABS: ANION GAP 7 MEQ/L (2-14); CHLORIDE 104 MEQ/L (99-109); GFR ESTIMATE (CALCULATED) > 59 mL/min/; GLUCOSE 225 mg/dL (70-99); POTASSIUM 4.4 MEQ/L (3.7-5.4); SAMPLE HEMOLYSIS CHECK 0; SAMPLE ICTERIC CHECK 0; SAMPLE LIPEMIA CHECK 0; SODIUM 135 MEQ/L (136-147); UREA NITROGEN (BUN) 21 mg/dL (9-23)
[2016-08-12 08:00] VITALS: BP 143/72
[2016-08-12 11:15] LABS: POINT-OF-CARE METER ID UU13113781
[2016-08-12 12:15] VITALS: BP 135/94
[2016-08-12 16:18] LABS: POINT-OF-CARE METER ID UU13113781
[2016-08-12 17:22] VITALS: BP 139/69
[2016-08-12 20:00] VITALS: BP 108/59
[2016-08-12 23:55] VITALS: BP 155/71
[2016-08-13 04:00] VITALS: BP 140/67
[2016-08-13 05:59] LABS: EOSINOPHIL (%) 0.6 % (0-5); HEMATOCRIT 26.7 % (38.0-50.0); IMMATURE GRANULOCYTE (%) 0.6 % (0.0-0.7); INSTRUMENT ABS NEUTROPHIL CT 4.4 K/uL; LYMPHOCYTE COUNT 0.5 K/uL (1.0-2.8); MCH 29.2 PG (29.0-34.0); MCHC 32.6 G/DL (30.0-36.0); MCV 89.6 FL (86-99); MEAN PLAT.VOLUME 9.9 uM^3 (9.0-12.4); MONOCYTE COUNT 0.2 K/uL (0-0.8); NEUTROPHIL (%) 85.9 % (45-76); NEUTROPHIL COUNT 4.4 K/uL (1.8-6.4); PLATELET COUNT 90 K/uL (156-360); RBC DIS.WIDTH-CV 16.3 % (11.8-14.6); RBC DIS.WIDTH-SD 51.7 % (39-53); RED BLOOD COUNT 2.98 M/uL (4.00-5.50); WHITE BLOOD COUNT 5.1 K/uL (4.1-10.2)
[2016-08-13 06:21] LABS: ANION GAP 7 MEQ/L (2-14); CHLORIDE 104 MEQ/L (99-109); GFR ESTIMATE (CALCULATED) > 59 mL/min/; GLUCOSE 206 mg/dL (70-99); MAGNESIUM 1.6 mg/dl (1.3-2.7); POTASSIUM 4.6 MEQ/L (3.7-5.4); SAMPLE HEMOLYSIS CHECK 0; SAMPLE ICTERIC CHECK 0; SAMPLE LIPEMIA CHECK 0; SODIUM 134 MEQ/L (136-147); UREA NITROGEN (BUN) 20 mg/dL (9-23)
[2016-08-13 08:00] VITALS: BP 135/61
[2016-08-13 11:18] LABS: POINT-OF-CARE METER ID UU14174216
[2016-08-13 12:00] VITALS: BP 148/65
[2016-08-13 15:00] VITALS: BP 137/70
[2016-08-13 16:11] LABS: POINT-OF-CARE METER ID UU14174216
[2016-08-13 19:59] VITALS: BP 139/70
[2016-08-13 22:04] LABS: POINT-OF-CARE METER ID UU13113781
[2016-08-13 23:55] VITALS: BP 167/91
[2016-08-14 04:00] VITALS: BP 131/71
[2016-08-14 07:04] LABS: EOSINOPHIL (%) 0 % (0-5); HEMATOCRIT 27.6 % (38.0-50.0); IMMATURE GRANULOCYTE (%) 0.4 % (0.0-0.7); INSTRUMENT ABS NEUTROPHIL CT 4.4 K/uL; LYMPHOCYTE COUNT 0.5 K/uL (1.0-2.8); MCH 28.8 PG (29.0-34.0); MCHC 32.6 G/DL (30.0-36.0); MCV 88.2 FL (86-99); MEAN PLAT.VOLUME 10.7 uM^3 (9.0-12.4); MONOCYTE COUNT 0.2 K/uL (0-0.8); NEUTROPHIL (%) 86.5 % (45-76); NEUTROPHIL COUNT 4.4 K/uL (1.8-6.4); PLATELET COUNT 96 K/uL (156-360); RBC DIS.WIDTH-CV 16.5 % (11.8-14.6); RBC DIS.WIDTH-SD 52.1 % (39-53); RED BLOOD COUNT 3.13 M/uL (4.00-5.50); WHITE BLOOD COUNT 5.1 K/uL (4.1-10.2)
[2016-08-14 07:27] LABS: ANION GAP 6 MEQ/L (2-14); CHLORIDE 101 MEQ/L (99-109); GFR ESTIMATE (CALCULATED) > 59 mL/min/; GLUCOSE 210 mg/dL (70-99); MAGNESIUM 1.7 mg/dl (1.3-2.7); POTASSIUM 4.3 MEQ/L (3.7-5.4); SAMPLE HEMOLYSIS CHECK 0; SAMPLE ICTERIC CHECK 0; SAMPLE LIPEMIA CHECK 0; SODIUM 131 MEQ/L (136-147); UREA NITROGEN (BUN) 22 mg/dL (9-23)
[2016-08-14 08:30] VITALS: BP 131/87
[2016-08-14 11:33] LABS: POINT-OF-CARE USER ID NUTSLF44
[2016-08-14 11:52] VITALS: BP 131/68
[2016-08-14] MEDS ORDERED: LASIX20 MG PO (14:59)
[2016-08-14] MEDS ORDERED: COUMADIN5 MG PO (14:59)
[2016-08-14] MEDS ORDERED: ASPIR-LOW81 MG PO (14:59)
[2016-08-14 15:23] LABS: INTER. NORMALIZED RATIO 1.1; PROTHROMBIN TIME 11.5 (9.2-11.2)
[2016-08-14 15:43] LABS: PTT 27.3 (25-32)
[2016-08-14 17:00] VITALS: BP 114/64
[2016-08-14 17:08] LABS: POINT-OF-CARE METER ID UU14174216; POINT-OF-CARE USER ID NUTSLF44
[2016-08-16 11:25] LABS: POC NON-PRINT COM 1 ND
== END 2016-08-14 19:40 | disposition home or self-care (01) | DRG 871 ==
LOC: EME 10:23 → EDOF 14:26 → 4EAST 14:26
PROVIDERS: Emergency Medicine; Family Medicine; Internal Medicine
DX: A41.9 Sepsis, unspecified organism (principal); J18.9 Pneumonia, unspecified organism; N17.9 Acute kidney failure, unspecified; I95.9 Hypotension, unspecified; E87.1 Hypo-osmolality and hyponatremia; I48.0 Paroxysmal atrial fibrillation; E11.65 Type 2 diabetes mellitus with hyperglycemia; I50.22 Chronic systolic (congestive) heart failure; J44.9 Chronic obstructive pulmonary disease, unspecified; D69.6 Thrombocytopenia, unspecified; G20 Parkinson's disease; K21.9 Gastro-esophageal reflux disease without esophagitis; B37.0 Candidal stomatitis; I25.10 Atherosclerotic heart disease of native coronary artery without angina pectoris; E03.9 Hypothyroidism, unspecified; F41.9 Anxiety disorder, unspecified; R01.1 Cardiac murmur, unspecified; D64.9 Anemia, unspecified; M19.90 Unspecified osteoarthritis, unspecified site; I35.0 Nonrheumatic aortic (valve) stenosis; E66.9 Obesity, unspecified; N40.0 Benign prostatic hyperplasia without lower urinary tract symptoms; Z72.0 Tobacco use; Z95.1 Presence of aortocoronary bypass graft; I25.2 Old myocardial infarction; Z79.01 Long term (current) use of anticoagulants
CPT/HCPCS: 71010; 71250; 80048; 80053; 80162; 80202; 81003; 82272; 82948; 83605; 83735; 83880; 84484; 85025; 85027; 85610; 85730; 87040; 93005; 93306; 94640; 94640 76; 99202; 99281; 99285; J0692; J1815; J2543; J3370; J7030; J7050; J7512

== ENCOUNTER 2017-05-23 12:02 | Observation (INO) | payer OTHER ==
[~2017-05-23] VITALS: Ht 152.4 cm; Wt 65.5 kg
[~2017-05-23 12:02] MED LIST changes: +ASPIR-LOW81 MG PO; +COUMADIN5 MG PO; +LASIX20 MG PO; +XOPENEX1.25 MG/3 IH
[2017-05-23] MEDS ORDERED: ELIQUIS2.5 MG PO (13:41)
[2017-05-23] MEDS ORDERED: PRESERVISION T1 EACH PO (13:43)
[2017-05-23] MEDS ORDERED: ONDANSETRON ODT4 MG PO (13:44)
[2017-05-23] MEDS ORDERED: ACETAMINOPHN-T1 EACH PO (13:44)
[2017-05-23 14:00] LABS: HEMATOCRIT 36.5 % (38.0-50.0); HEMOGLOBIN 11.7 G/DL (12.5-16.6); MCH 28.9 PG (29.0-34.0); MCHC 32.1 G/DL (30.0-36.0); MCV 90.1 FL (86-99); PLATELET COUNT 154 K/uL (156-360); RBC DIS.WIDTH-CV 14.4 % (11.8-14.6); RBC DIS.WIDTH-SD 47.7 % (39-53); RED BLOOD COUNT 4.05 M/uL (4.00-5.50)
[2017-05-23 14:06] LABS: INTER. NORMALIZED RATIO 1.3
[2017-05-23 14:09] LABS: ALBUMIN 4.1 g/dL (3.2-4.8); CHLORIDE 102 mEq/L (99-109); POTASSIUM 4.7 mEq/L (3.7-5.4); PTT 34.1 SEC (25-37); SODIUM 138 mEq/L (136-147)
[2017-05-23 14:11] LABS: GLUCOSE 97 mg/dL (70-99); TOTAL PROTEIN 6.9 g/dL (6.4-8.3)
[2017-05-23 14:13] LABS: TOTAL BILIRUBIN 0.5 mg/dL (0.0-1.0)
[2017-05-23 14:14] LABS: ALKALINE PHOSPHATASE 49 IU/L (3-129)
[2017-05-23 14:15] LABS: CREATININE 1.1 mg/dL (0.6-1.3); GFR ESTIMATE (CALCULATED) > 59 mL/min/ (58.99-99999)
[2017-05-23 14:16] LABS: AST (GOT) 12 IU/L (2-34); UREA NITROGEN (BUN) 16 mg/dL (9-23)
[2017-05-23 14:18] LABS: ALT (GPT) 4 IU/L (3-49)
[2017-05-23 15:40] LABS: APPEARANCE CLEAR ((CLEAR)); BILIRUBIN NEGATIVE; BLOOD SMALL; COLOR YELLOW ((YELLOW)); GLUCOSE (STRIP) NEGATIVE; KETONES NEGATIVE; LEUKOCYTES NEGATIVE; NITRITE NEGATIVE; PROTEIN (STRIP) NEGATIVE; SPECIFIC GRAVITY 1.017 (1.000-1.030); UROBILINOGEN 0.2 MG/DL (0.2-1.0)
[2017-05-23 15:52] LABS: BACTERIA NONE SEEN /HPF; EPITHELIAL CELLS NONE SEEN /HPF; MUCUS NONE SEEN /LPF; RED BLOOD CELLS TNTC /HPF (0-5); WHITE BLOOD CELLS 0-5 /HPF (0-5)
[2017-05-23 20:00] VITALS: BP 135/77
[2017-05-24 00:13] VITALS: BP 119/56
[2017-05-24 05:47] LABS: HEMATOCRIT 35.1 % (38.0-50.0); MCH 28.4 PG (29.0-34.0); MCHC 31.3 G/DL (30.0-36.0); MCV 90.5 FL (86-99); PLATELET COUNT 157 K/uL (156-360); RBC DIS.WIDTH-CV 14.5 % (11.8-14.6); RBC DIS.WIDTH-SD 48.3 % (39-53); RED BLOOD COUNT 3.88 M/uL (4.00-5.50); WHITE BLOOD COUNT 5.3 K/uL (4.1-10.2)
[2017-05-24 06:32] LABS: ALBUMIN 3.8 G/DL (3.2-4.8); ALKALINE PHOSPHATASE 36 IU/L (3-129); ALT (GPT) 4 IU/L (3-49); AST (GOT) 12 IU/L (2-34); CHLORIDE 99 MEQ/L (99-109); CREATININE 1.2 MG/DL (0.6-1.3); GFR ESTIMATE (CALCULATED) > 59 mL/min/ (58.99-99999); GLUCOSE 103 mg/dL (70-99); POTASSIUM 4.8 MEQ/L (3.7-5.4); SODIUM 138 MEQ/L (136-147); TOTAL BILIRUBIN 0.5 MG/DL (0.0-1.0); UREA NITROGEN (BUN) 17 mg/dL (9-23)
[2017-05-24 06:57] VITALS: BP 118/62
[2017-05-24 11:54] VITALS: BP 141/76
== END 2017-05-24 17:47 | disposition home or self-care (01) ==
LOC: EME 12:02 → EDOF 16:04 → 5WEST 16:04 → EDOF 16:04 → ENRESERV 16:10 → 5WEST 19:28
PROVIDERS: Emergency Medicine; Student in an Organized Health Care Education/Training Program
DX: R04.2 Hemoptysis (principal); R31.9 Hematuria, unspecified; Z79.01 Long term (current) use of anticoagulants; I48.0 Paroxysmal atrial fibrillation; I08.0 Rheumatic disorders of both mitral and aortic valves; E78.5 Hyperlipidemia, unspecified; G20 Parkinson's disease; I25.10 Atherosclerotic heart disease of native coronary artery without angina pectoris; Z95.1 Presence of aortocoronary bypass graft; J44.9 Chronic obstructive pulmonary disease, unspecified; G47.33 Obstructive sleep apnea (adult) (pediatric); Z99.81 Dependence on supplemental oxygen; Z87.01 Personal history of pneumonia (recurrent); Z91.81 History of falling; Z87.891 Personal history of nicotine dependence; S63.502A Unspecified sprain of left wrist, initial encounter; D64.9 Anemia, unspecified; E11.9 Type 2 diabetes mellitus without complications; Z79.84 Long term (current) use of oral hypoglycemic drugs; Z88.5 Allergy status to narcotic agent
CPT/HCPCS: 70450; 71275; 73110; 80053; 81003; 85027; 85610; 85730; 86850; 86900; 86901; 93005; 99281; 99285; G0378

== ENCOUNTER → 2017-06-17 | Outpatient (CLI) | payer OTHER ==
[~2017-06-17] VITALS: Ht 149.9 cm; Wt 68.5 kg
[~2017-06-17] MED LIST changes: +ACETAMINOPHN-T1 EACH PO; +ELIQUIS2.5 MG PO; +ONDANSETRON ODT4 MG PO; +PRESERVISION T1 EACH PO; +ZYRTEC10 M2 PO
== END | disposition home or self-care (01) ==
LOC: AMB 09:00
PROVIDERS: Internal Medicine
PROC: 0DJ08ZZ Inspection of Upper Intestinal Tract, Via Natural or Artificial Opening Endoscopic (ICD-10-PCS; principal; 2017-06-17)
DX: K92.0 Hematemesis (principal); G20 Parkinson's disease; I48.91 Unspecified atrial fibrillation; I25.10 Atherosclerotic heart disease of native coronary artery without angina pectoris; N40.0 Benign prostatic hyperplasia without lower urinary tract symptoms; E11.9 Type 2 diabetes mellitus without complications; F41.1 Generalized anxiety disorder; I10 Essential (primary) hypertension; Z79.01 Long term (current) use of anticoagulants
CPT/HCPCS: 82948; J3010

== ENCOUNTER 2017-09-20 21:30 | Observation (INO) | payer OTHER ==
[~2017-09-20] VITALS: Ht 152.4 cm; Wt 75.9 kg
[2017-09-20 21:53] LABS: BASOPHIL (%) 0.1 % (0-1); EOSINOPHIL (%) 4.1 % (0-5); EOSINOPHIL COUNT 0.3 K/uL (0-0.3); HEMATOCRIT 30.7 % (38.0-50.0); IMMATURE GRANULOCYTE (%) 0.2 % (0.0-0.7); LYMPHOCYTE (%) 17.8 % (15-42); LYMPHOCYTE COUNT 1.5 K/uL (1.0-2.8); MCH 29.4 PG (29.0-34.0); MCHC 31.9 G/DL (30.0-36.0); MCV 92.2 FL (86-99); MONOCYTE (%) 7.1 % (3-12); MONOCYTE COUNT 0.6 K/uL (0-0.8); NEUTROPHIL (%) 70.7 % (45-76); NEUTROPHIL COUNT 5.8 K/uL (1.8-6.4); PLATELET COUNT 169 K/uL (156-360); RBC DIS.WIDTH-CV 14.7 % (11.8-14.6); RBC DIS.WIDTH-SD 49.7 % (39-53); WHITE BLOOD COUNT 8.2 K/uL (4.1-10.2)
[2017-09-20 22:04] LABS: ALBUMIN 3.7 g/dL (3.2-4.8); CHLORIDE 97 mEq/L (99-109); POTASSIUM 4.8 mEq/L (3.7-5.4); SODIUM 133 mEq/L (136-147)
[2017-09-20 22:06] LABS: GLUCOSE 187 mg/dL (70-99); HEMOGLOBIN 9.8 G/DL (12.5-16.6); RED BLOOD COUNT 3.33 M/uL (4.00-5.50); TOTAL PROTEIN 6.5 g/dL (6.4-8.3)
[2017-09-20 22:08] LABS: TOTAL BILIRUBIN 0.6 mg/dL (0.0-1.0)
[2017-09-20 22:10] LABS: ALKALINE PHOSPHATASE 53 IU/L (3-129); CREATININE 1.1 mg/dL (0.6-1.3); GFR ESTIMATE (CALCULATED) > 59 mL/min/ (58.99-99999)
[2017-09-20 22:11] LABS: AST (GOT) 17 IU/L (2-34); UREA NITROGEN (BUN) 16 mg/dL (9-23)
[2017-09-20 22:13] LABS: ALT (GPT) 10 IU/L (3-49)
[2017-09-20 22:14] LABS: APPEARANCE CLEAR ((CLEAR)); BILIRUBIN NEGATIVE; BLOOD SMALL; COLOR YELLOW ((YELLOW)); GLUCOSE (STRIP) 50; KETONES NEGATIVE; LEUKOCYTES SMALL; NITRITE NEGATIVE; PROTEIN (STRIP) NEGATIVE; SPECIFIC GRAVITY 1.014 (1.000-1.030); UROBILINOGEN 0.2 MG/DL (0.2-1.0)
[2017-09-20 22:15] LABS: TROP-I INTERPRETATION NEGATIVE; TROPONIN-I < 0.01 ng/mL (0.0-0.30)
[2017-09-20 22:27] LABS: BACTERIA NONE SEEN /HPF; EPITHELIAL CELLS NONE SEEN /HPF; MUCUS NONE SEEN /LPF; RED BLOOD CELLS 20-30 /HPF (0-5); UCUL ADDED? YES
[2017-09-20] MEDS ORDERED: ELIQUIS2.5 MG PO (23:32)
[2017-09-20] MEDS ORDERED: EQUATE ALLERGY PO (23:35)
[2017-09-20] MEDS ORDERED: COLACE100 MG PO (23:37)
[2017-09-20] MEDS ORDERED: ZOFRAN ODT4 MG PO (23:48)
[2017-09-20] MEDS ORDERED: HYDROCODON-ACE1 EAC7 PO (23:51)
[2017-09-20] MEDS ORDERED: NORCO 5/3251 TABLET PO (23:54)
[2017-09-21 04:55] VITALS: BP 152/77
[2017-09-21 06:06] LABS: TROP-I INTERPRETATION NEGATIVE; TROPONIN-I < 0.01 ng/mL (0.0-0.30)
[2017-09-21 11:35] VITALS: BP 150/73
[2017-09-21 12:39] LABS: TROP-I INTERPRETATION NEGATIVE; TROPONIN-I < 0.01 ng/mL (0.0-0.30)
[2017-09-21 15:21] VITALS: BP 189/77
[2017-09-21] MEDS ORDERED: CEFTIN500 MG PO (16:08)
== END 2017-09-21 17:32 | disposition home or self-care (01) ==
LOC: EME → EDBD 21:30 → EME 21:30 → 4SOUTH 09-21 02:47 → EDOF 09-21 02:47 → ENRESERV 09-21 02:52 → 4SOUTH 09-21 04:38
PROVIDERS: Emergency Medicine; Hospitalist
DX: N39.0 Urinary tract infection, site not specified (principal); G20 Parkinson's disease; F03.90 Unspecified dementia, unspecified severity, without behavioral disturbance, psychotic disturbance, mood disturbance, and anxiety; Z98.890 Other specified postprocedural states; J96.10 Chronic respiratory failure, unspecified whether with hypoxia or hypercapnia; Z99.81 Dependence on supplemental oxygen; I35.0 Nonrheumatic aortic (valve) stenosis; I48.0 Paroxysmal atrial fibrillation; I10 Essential (primary) hypertension; E78.5 Hyperlipidemia, unspecified; I25.10 Atherosclerotic heart disease of native coronary artery without angina pectoris; Z95.1 Presence of aortocoronary bypass graft; Z87.891 Personal history of nicotine dependence; Z82.49 Family history of ischemic heart disease and other diseases of the circulatory system; Z79.01 Long term (current) use of anticoagulants
CPT/HCPCS: 70450; 71045; 80053; 81003; 82140; 83605; 84484; 85025; 87086; 93005; 99281; 99285; G0378; J0692; J7030